=== PATIENT | male | born 1960 | race Caucasian/White ===

== ENCOUNTER 2019-08-18 11:23 | Emergency (ER) | payer BC ==
[~2019-08-18] VITALS: Ht 182.9 cm; Wt 112.7 kg
[2019-08-18 11:27] VITALS: Ht 182.9 cm; Wt 112.7 kg
[2019-08-18] MEDS ORDERED: NORVASC2.5 MG PO (11:28)
[2019-08-18 11:46] LABS: BASOPHILS 0.2 % (0-2); EOSINOPHILS 0.6 % (0-7); HEMATOCRIT 49.7 % (42.0-54.0); HEMOGLOBIN 17.1 g/dL (13.5-17.5); IMMATURE GRANULOCYTES 0.3 % (0-5); LYMPHOCYTES 18.8 % (15-50); MCH 33.4 pg (26.0-34.0); MCHC 34.4 g/dL (31.0-37.0); MCV 97.1 fL (80.0-100.0); MEAN PLATELET VOLUME 9.9 fL (7.4-10.4); MONOCYTES 11.8 % (2-11); NEUTROPHILS 68.3 % (40-80); PLATELET COUNT 239 10x3/uL (130-400); RBC 5.12 10x6/uL (4.20-6.10); WBC 9.4 10x3/uL (4.8-10.8)
[2019-08-18 11:55] LABS: ANION GAP 12.2 mmol/L (8-16); CALCIUM 9.1 mg/dL (8.5-10.1); CARBON DIOXIDE 27.7 mmol/L (21.0-32.0); CREATININE - SERUM 1.1 mg/dL (0.6-1.3); POTASSIUM - SERUM 3.9 mmol/L (3.5-5.1)
[2019-08-18 12:00] LABS: ALBUMIN 4.1 g/dL (3.4-5.0); BILIRUBIN - TOTAL 0.82 mg/dL (0.2-1.3); PROTEIN - SERUM 8.3 g/dL (6.4-8.2)
[2019-08-18 12:36] VITALS: BP 158/92
== END 2019-08-18 12:37 | disposition left against medical advice (07) ==
LOC: D.ER 11:23
PROVIDERS: Family Medicine
DX: K22.2 Esophageal obstruction (principal); I10 Essential (primary) hypertension; T18.128A Food in esophagus causing other injury, initial encounter

== ENCOUNTER 2019-09-05 03:55 | Emergency (ER) | payer BC ==
[~2019-09-05] VITALS: Ht 182.9 cm; Wt 112.7 kg
[~2019-09-05 03:55] MED LIST: NORVASC2.5 MG PO
[2019-09-05 04:03] VITALS: Ht 182.9 cm; Wt 112.7 kg
[2019-09-05] MEDS ORDERED: HYDROCODON-ACE1 EA10 PO (04:20)
[2019-09-05] MEDS ORDERED: KEFLEX500 MG PO (04:20)
[2019-09-05 05:04] VITALS: BP 140/74
== END 2019-09-05 05:04 | disposition home or self-care (01) ==
LOC: D.ER 03:55
DX: J40 Bronchitis, not specified as acute or chronic (principal); I10 Essential (primary) hypertension